=== PATIENT | male | born 1945 | race Caucasian/White ===

== ENCOUNTER 2020-10-15 14:52 | Emergency (ER) | payer MEDICARE, BC ==
[~2020-10-15] VITALS: Ht 193 cm; Wt 126.5 kg
[~2020-10-15 14:52] MED LIST: ASPI81CH PO; CIPR500 PO; DOCU100 PO; Daily Multivit1 EAC2 PO; FAMO20 PO; Glucosamine &1 EACH PO; HYDR1TAB94 PO; NAPR250 PO; SIMV10 PO
[2020-10-15 15:35] LABS: BASOPHILS ABSOLUTE AUTO 0.01 K/mm3 (0.00-0.23); BASOPHILS PERCENT AUTO 0 % (0-2); EOSINOPHILS ABSOLUTE AUTO 0.11 K/mm3 (0.00-0.68); EOSINOPHILS PERCENT AUTO 2 % (0-6); Hematocrit 45.7 % (37.0-53.0); Hemoglobin 15.7 g/dL (13.5-17.5); IMMATURE GRAN ABSOLUTE AUTO 0.01 K/mm3 (0.00-0.10); IMMATURE GRAN PERCENT AUTO 0 % (0-1); LYMPHOCYTES ABSOLUTE AUTO 2.15 K/mm3 (0.84-5.20); LYMPHOCYTES PERCENT AUTO 33 % (21-46); MONOCYTES PERCENT AUTO 9 % (4-13); Mean Corpuscular HGB 30.8 pg (26.0-34.0); Mean Corpuscular HGB Conc 34.4 g/dL (31.5-36.5); Mean Corpuscular Volume 90 fL (80-100); Mean Platelet Volume 10.3 fL (9.1-12.4); NEUTROPHILS ABSOLUTE AUTO 3.74 K/mm3 (1.96-9.15); NEUTROPHILS PERCENT AUTO 56 % (41-73); Platelet Count 167 K/mm3 (150-400); RDW Coefficient Variation 13.3 % (11.7-14.2); RDW Standard Deviation 43.6 fL (35.1-46.3); White Blood Cell Count 6.62 K/mm3 (4.00-11.30)
[2020-10-15 16:04] LABS: Alanine Aminotransfer (ALT/SGP 35 U/L (12-78); Albumin, Blood 4.3 g/dL (3.4-5.0); Albumin/Globulin Ratio 1.3 (0.8-1.8); Alk Phos 63 U/L (50-136); Anion Gap 7 mmol/L (6-16); Aspartate Aminotrans (AST/SGOT 20 U/L (12-37); Bilirubin, Total 0.6 mg/dL (0.1-1.0); Blood Urea Nitrogen 16 mg/dL (8-24); Bun/Creatinine Ratio 14.4 (12.0-20.0); CO2, Blood 25 mmol/L (21-32); Calcium, Blood 9.5 mg/dL (8.5-10.1); Chloride, Blood 109 mmol/L (98-108); Creatinine, Blood 1.11 mg/dL (0.60-1.20); Globulin, Blood 3.3 g/dL (2.2-4.0); Glomerular Filtration Rate >60 (60-); Glucose, Blood 80 mg/dL (70-99); Potassium, Blood 4.3 mmol/L (3.5-5.5); Sodium, Blood 141 mmol/L (136-145); Total Protein, Blood 7.6 g/dL (6.4-8.2); Troponin I <0.015 ng/mL (0.000-0.040)
[2020-10-15] MEDS ORDERED: Vitamin and Mi1 EACH PO (17:11)
[2020-10-15] MEDS ORDERED: CO Q10100 MG PO (17:11)
[2020-10-15] MEDS ORDERED: CALCIUM 600 +1 EA11 PO (17:18)
[2020-10-15] MEDS ORDERED: MIRALAX17 GM PO (17:19)
[2020-10-15] MEDS ORDERED: PSYSENPA PO (17:20)
[2020-10-15] MEDS ORDERED: ASPI81CH PO (17:21)
[2020-10-15] MEDS ORDERED: POTCHL20ER PO (17:21)
[2020-10-15] MEDS ORDERED: FAMO20 PO (17:22)
[2020-10-15] MEDS ORDERED: ZOCOR20 MG PO (17:22)
[2020-10-15] MEDS ORDERED: LOSA50 PO (17:22)
[2020-10-15] MEDS ORDERED: FISH OIL 1,2001 EAC1 PO (17:24)
[2020-10-15] MEDS ORDERED: Echinacea400 MG PO (17:24)
[2020-10-15 17:59] LABS: International Normalized Ratio 1.02; Prothrombin Time Results 10.9 Sec (9.7-11.5)
== END 2020-10-15 19:53 | disposition home or self-care (01) ==
LOC: ER 14:52
PROVIDERS: Emergency Medicine
DX: I71.2 Thoracic aortic aneurysm, without rupture (principal); I77.811 Abdominal aortic ectasia; Z79.82 Long term (current) use of aspirin; Z79.899 Other long term (current) drug therapy; Z87.891 Personal history of nicotine dependence
CPT/HCPCS: 36415; 71046; 71275; 74175; 80053; 83880; 84484; 85025; 85610; 85730; 93005; 93010; 99284-25; Q9967

== ENCOUNTER 2023-04-13 10:39 | Day surgery (SDC) | payer MEDICARE, BC ==
[~2023-04-13] VITALS: Ht 193 cm; Wt 124.5 kg
[~2023-04-13 10:39] MED LIST changes: +CALCIUM 600 +1 EA11 PO; +CO Q10100 MG PO; +Echinacea400 MG PO; +FISH OIL 1,2001 EAC1 PO; +LOSA50 PO; +MIRALAX17 GM PO; +POTCHL20ER PO; +PSYSENPA PO; +Vitamin and Mi1 EACH PO; +ZOCOR20 MG PO
[2023-04-13] MEDS ORDERED: Calcium Carbon500 MG (11:04)
[2023-04-13] MEDS ORDERED: AMLO5 (11:04)
[2023-04-13] MEDS ORDERED: JOINT HEALTH (11:05)
[2023-04-13] MEDS ORDERED: LIDO700A20 (11:05)
--- NOTE | 2023-04-13 11:29 | NUR ---
04/13/23 1129 Salome Franco PT STEPHANIE PIERCE FOR BOWEL PREP.
[2023-04-13 12:29] VITALS: BP 108/80
== END 2023-04-13 12:42 | disposition home or self-care (01) ==
LOC: ORSCSDS 10:39
PROVIDERS: Specialist
PROC: 0DJD8ZZ Inspection of Lower Intestinal Tract, Via Natural or Artificial Opening Endoscopic (ICD-10-PCS; principal; 2023-04-13 12:45)
DX: Z12.11 Encounter for screening for malignant neoplasm of colon (principal); Z86.010 Personal history of colon polyps; K64.8 Other hemorrhoids; K57.30 Diverticulosis of large intestine without perforation or abscess without bleeding; I10 Essential (primary) hypertension; E78.5 Hyperlipidemia, unspecified; I71.21 Aneurysm of the ascending aorta, without rupture; Z79.899 Other long term (current) drug therapy
CPT/HCPCS: J2704; J7120